=== PATIENT | female | born 1995 | race Caucasian/White ===

== ENCOUNTER 2018-12-26 10:52 | Emergency (ER) | payer OTHER ==
[2018-12-26] MEDS ORDERED: NS 1,000 ML IV ONE (11:11)
--- NOTE | 2018-12-26 12:01 | EDPHY ---
H & P Stated Complaint: Syncope Time Seen by Provider: 12/26/18 11:11 HPI/ROS: CHIEF COMPLAINT: Syncope HISTORY OF PRESENT ILLNESS: 23-year-old female presents after syncopal episode. She stood up quickly from a couch, felt dizzy and then fell to the ground. She does not know if she fainted or almost fainted. She felt some jerking movements in her upper extremities and torso while she was falling, no definite seizure activity. She currently has a mild headache. No other pain or injuries. History of frequent dizziness when she stands up quickly. No prior syncopal episode. No oral intake this morning prior to the episode. REVIEW OF SYSTEMS: complete 10 point ROS reviewed and is negative except for the noted elements in the HPI - Personal History LMP (Females 10-55): 8-14 Days Ago Current Tetanus/Diphtheria Vaccine: Yes - Medical/Surgical History Hx Asthma: No Hx Chronic Respiratory Disease: No Hx Diabetes: No Hx Cardiac Disease: No Hx Renal Disease: No Hx Cirrhosis: No Hx Alcoholism: No Other PMH: Denies - Social History Smoking Status: Never smoked Alcohol Use: Sober Drug Use: None - Physical Exam Exam: General Appearance: Alert, pleasant and talkative Eyes: Pupils equal and round, no conjunctival pallor ENT, Mouth: Mucous membranes moist Neck: Normal inspection, no tenderness, range of motion without pain Respiratory: Lungs are clear to auscultation Cardiovascular: Regular rate and rhythm Gastrointestinal: Abdomen is soft and nontender Neurological: Alert, oriented x3, cranial nerves II through XII intact, motor 5 /5, sensory intact to light touch Skin: Warm and dry Extremities: Normal inspection Psychiatric: Mood and affect normal Constitutional: Initial Vital Signs Temperature (C) 37.0 C 12/26/18 11:03 Heart Rate 97 12/26/18 11:03 Respiratory Rate 18 12/26/18 11:03 Blood Pressure 123/79 H 12/26/18 11:03 O2 Sat (%) 95 12/26/18 11:03 O2 Delivery Mode Room Air Allergies/Adverse Reactions: Cephalosporins Allergy (Verified 12/26/18 11:06) Penicillins Allergy (Verified 12/26/18 11:06) Home Medications: Medication Instructions Recorded NK [No Known Home Meds] 12/26/18 Medical Decision Making - Diagnostics EKG Interpretation: EKG interpreted by me reveals normal sinus rhythm, rate 81, no ST or T segment changes. Interpretation: Normal EKG ED Course/Re-evaluation: This patient presents after a syncopal episode related to sudden position change and lack of oral intake this morning. She is well-appearing and there are no signs of injury. EKG reveals no evidence of ischemia or dysrhythmia. pvc monitor revealed normal sinus rhythm throughout. Laboratory tests are normal. She was given IV normal saline 1 L. She ambulated throughout the emergency department and remained asymptomatic. Safe and stable for discharge home. Syncope warning signs discussed. Differential Diagnosis: Differential diagnosis includes though is not limited to cardiac dysrhythmia, CVA, TIA, GI bleed, sepsis, hypoglycemia. - Data Points Laboratory Results: Laboratory Results 12/26/18 11:50 12/26/18 11:50 12/26/18 12/26/18 12/26/18 11:50 11:50 11:50 WBC 6.81 10^3/uL 10^3/uL (3.80-9.50) RBC 4.86 10^6/uL 10^6/uL (4.18-5.33) Hgb 13.5 g/dL g/dL (12.6-16.3) Hct 41.0 % % (38.0-47.0) MCV 84.4 fL fL (81.5-99.8) MCH 27.8 pg L pg (27.9-34.1) MCHC 32.9 g/dL g/dL (32.4-36.7) RDW 14.4 % % (11.5-15.2) Plt Count 204 10^3/uL 10^3/uL (150-400) MPV 11.4 fL fL (8.7-11.7) Neut % (Auto) 62.0 % % (39.3-74.2) Lymph % (Auto) 28.3 % % (15.0-45.0) [place] % (Auto) 8.7 % % (4.5-13.0) Eos % (Auto) 0.6 % % (0.6-7.6) Baso % (Auto) 0.3 % % (0.3-1.7) Nucleat RBC Rel Count 0.0 % % (0.0-0.2) Absolute Neuts (auto) 4.22 10^3/uL 10^3/uL (1.70-6.50) Absolute Lymphs (auto) 1.93 10^3/uL 10^3/uL (1.00-3.00) Absolute Monos (auto) 0.59 10^3/uL 10^3/uL (0.30-0.80) Absolute Eos (auto) 0.04 10^3/uL 10^3/uL (0.03-0.40) Absolute Basos (auto) 0.02 10^3/uL 10^3/uL (0.02-0.10) Absolute Nucleated RBC 0.00 10^3/uL 10^3/uL (0-0.01) Immature Gran % 0.1 % % (0.0-1.1) Immature Gran # 0.01 10^3/uL 10^3/uL (0.00-0.10) Sodium 137 mEq/L mEq/L (135-145) Potassium 3.9 mEq/L mEq/L (3.5-5.2) Chloride 106 mEq/L mEq/L (97-110) Carbon Dioxide 21 mEq/l L mEq/l (22-31) Anion Gap 10 mEq/L mEq/L (6-14) BUN 10 mg/dL mg/dL (7-23) Creatinine 0.7 mg/dL mg/dL (0.6-1.0) Estimated GFR > 60 Glucose 96 mg/dL mg/dL (70-100) Calcium 9.6 mg/dL mg/dL (8.5-10.4) Beta HCG, Qual NEGATIVE Medications Given: Discontinued Medications Sodium Chloride (Ns) 1,000 mls @ 0 mls/hr IV EDNOW ONE; Wide Open PRN Reason: Protocol Stop: 12/26/18 11:12 Last Admin: 12/26/18 12:17 Dose: 1,000 mls Departure - Departure Disposition: Home, Routine, Self-Care Clinical Impression: Syncope Qualifiers: Syncope type: vasovagal syncope Qualified Code(s): R55 - Syncope and collapse Condition: Fair Instructions: Syncope (ED) Additional Instructions: Return for recurrent syncopal episode, any concerns. Referrals: Leslie Daley MD [[facility] [place] - As per Instructions
[2018-12-26 12:10] LABS: PLATELET COUNT 204 10^3/uL (150-400)
[2018-12-26 13:16] VITALS: BP 113/70
--- NOTE | 2018-12-26 14:47 | CPEKG ---
Test Reason : OPEN Blood Pressure : / mmHG Vent. Rate : 081 BPM Atrial Rate : 081 BPM P-R Int : 129 ms QRS Dur : 073 ms QT Int : 375 ms P-R-T Axes : 067 065 042 degrees QTc Int : 436 ms Sinus rhythm Confirmed by Pily Edouard ([id number]) on 12/26/2018 2:46:47 PM Referred By: Pily Edouard Confirmed By:Pily Edouard
== END 2018-12-26 13:14 | disposition home or self-care (01) ==
DX: R55 Syncope and collapse (principal); E86.9 Volume depletion, unspecified

== ENCOUNTER 2019-05-03 08:35 | Emergency (ER) | payer OTHER | END 2019-05-03 10:49 | disposition home or self-care (01) ==